=== PATIENT | female | born 1995 | race Caucasian/White ===

== ENCOUNTER 2016-09-17 21:52 | Emergency (ER) | payer OTHER ==
[~2016-09-17] VITALS: Ht 165.1 cm; Wt 61.2 kg
[2016-09-17 22:09] VITALS: BP 139/68
[2016-09-17 22:33] LABS: BILIRUBIN,URINE NEGATIVE (NEG); GLUCOSE,URINE NEGATIVE (NEG); NITRITE,URINE NEGATIVE (NEG); PH,URINE 6.5; PROTEIN,URINE NEGATIVE (NEG-TRACE); UROBILINOGEN,URINE 0.2 mg/dL (0.2 mg/dL)
[2016-09-17 22:41] LABS: BACTERIA,URINE MODERATE /HPF (0-FEW); RBC,URINE 0 /HPF (0-2); SQUAMOUS EPITHELIAL CELL,UR MANY /LPF
--- NOTE | 2016-09-18 00:29 | PHYS DOC ---
Past Medical History Past Medical History: No Pertinent History Past Surgical History: Tonsillectomy Additional Past Surgical Histo: TUBES/ADENOIDS Alcohol Use: Rarely Drug Use: None Adult General Chief Complaint Chief Complaint: ABDOMINAL PAIN IN HPI HPI Patient is a 20 year old female who presents with abdominal pain in . She states she is , at 4 weeks by dates, LMP 08/20. She states she had positive home test, now today having cramping lower abdominal pain. Denies fevers/chills, nausea/vomiting, diarrhea/constipation, dysuria/ hematuria, vaginal bleeding/discharge. Has not established care with OB yet. Review of Systems Review of Systems Constitutional: Denies fever or chills HENT: Denies nasal congestion or sore throat Respiratory: Denies cough or shortness of breath Cardiovascular: Denies chest pain or edema GI: Reports abdominal pain, denies nausea, vomiting, or diarrhea : Denies dysuria or hematuria Musculoskeletal: Denies back pain or joint pain Integument: Denies rash Neurologic: Denies headache Allergies Allergies Allergies Uncoded Allergies Type Severity Reaction Last Updated Verified STRAWBERRIES Allergy Unknown 09/17/16 Physical Exam Physical Exam Constitutional: Well developed, well nourished, no acute distress, non-toxic appearance. Smiling & laughing. HENT: Normocephalic, atraumatic, bilateral external ears normal, oropharynx moist, nose normal. Eyes: conjunctiva normal, no discharge. Neck: supple, no stridor. Cardiovascular: RRR, no murmurs, no edema. Lungs & Thorax: LCTAB, no wheezing, no respiratory distress. Abdomen: soft, diffuse lower abdominal pain no focal RLQ or RUQ tenderness, no masses or pulsatile masses, no rebound/guarding, nondistended. : normal appearing female external genitalia, normal appearing cervix with closed os, no blood or discharge, no CMT/adnexal tenderness. Skin: Warm, dry, no erythema, no rash. Back: No CVA tenderness. Extremities: No tenderness, no edema. Neurologic: Alert and oriented X 3 Current Patient Data Vital Signs Vital Signs Date Time Temp Pulse Resp B/P (MAP) Pulse Ox O2 Delivery O2 Flow Rate FiO2 09/17/16 22:09 98.2 97 18 139/68 (91) 98 Room Air 98.2 Lab Values Laboratory Tests Test 09/17/16 21:08 09/17/16 22:00 09/17/16 23:42 POC Urine HCG, Qualitative Hcg positive (Negative) Urine Collection Type Unknown Urine Color Yellow Urine Clarity Clear Urine pH 6.5 Urine Specific [place] >=1.030 Urine Protein Negative mg/dL (NEG-TRACE) Urine Glucose (UA) Negative mg/dL (NEG) Urine Ketones (Stick) Negative mg/dL (NEG) Urine Blood Negative (NEG) Urine Nitrite Negative (NEG) Urine Bilirubin Negative (NEG) Urine Urobilinogen Dipstick 0.2 mg/dL (0.2 mg/dL) Urine Leukocyte Esterase Small (NEG) Urine RBC 0 /HPF (0-2) Urine WBC 5-10 /HPF (0-4) Urine Squamous Epithelial Cells Many /LPF Urine Bacteria Moderate /HPF (0-FEW) Urine Mucus Marked /LPF Maternal Serum HCG Beta Subunit 29 mIU/mL (0-5) H Microbiology 09/17/16 Wet Prep - Final, Complete 09/17/16 Urine Culture - Preliminary, Resulted 09/17/16 Urine Culture Result 1 (ANAND) - Preliminary, Resulted EKG EKG [] Radiology/Procedures Radiology/Procedures PROCEDURE: OB < 14 WKS Obstetrical ultrasound less than 14 weeks HISTORY: Abdominal pain TECHNIQUE: Transabdominal and transvaginal transducers with grayscale, duplex Doppler sonography utilized. FINDINGS: Transabdominal imaging demonstrates uterus measuring 7.2 x 4.3 x 6.2 cm. Endometrium thickness 11 mm. Ovaries not visualized transabdominal. Transvaginal imaging demonstrates normal appearance of the cervix. Trace fluid within the cul-de-sac. Anteverted uterus measures 7.5 x 3.5 cm longitudinal. The uterus appears to be bicornuate with separation of the endometrium at the 2 uterine horns which join together at the lower uterine segment. Lower uterine endometrial thickness is 12 mm. Right uterine horn endometrial thickness is 9 mm, left uterine horn endometrial thickness is 8 mm. Right ovary measures 2.0 x 2.9 x 2.1 cm with minimal fluid surrounding it. Left ovary measures 1.0 x 3.0 x 1.1 cm. Subcentimeter bilateral ovarian follicles are present. Symmetric intact bilateral ovarian blood flow is present. There is thin slip of fluid within the right uterine horn endometrial cavity. IMPRESSION: No intrauterine evident. Small volume of dependent pelvic fluid. Bicornuate uterus. See discussion above. Electronically signed by: Deidra Goldberg MD (09/18/2016 12:31 AM) [facility] DICTATED and SIGNED BY: DEIDRA GOLDBERG MD DATE: 09/18/16 0028 [] Course & Med Decision Making Course & Med Decision Making Pertinent Labs and Imaging studies reviewed. (See chart for details) The patient presents with abdominal pain in . Well appearing & happy, normal vitals. Abdomen minimally tender. She initially refused labs but ultimately consented to BHCG. UA shows UTI. US shows no evidence of IUP, very early, could be early IUP, miscarriage, or ectopic . Discussed possibilities with patient, very important to follow up in about [address] Madden in OB clinic. BHCG is very low so may require several visits to confirm IUP but needs to establish care bc of pain today. Recommend rest, hydration, tylenol for pain, macrobid for UTI. Come back for high fever, severe pain, uncontrolled vomiting, any otherwise worsening condition, discharged home in stable condition. [] Dragon Disclaimer Dragon Disclaimer This electronic medical record was generated, in whole or in part, using a voice recognition dictation system. Departure Departure Impression: Primary Impression: Abdominal pain affecting Disposition: 01 HOME, SELF-CARE Condition: STABLE Referrals: NON,STAFF (PCP) JONES MADDEN Jr, MD Patient Instructions: Abdominal Pain During , [id number] Additional Instructions: You were seen in the emergency department today for abdominal pain in early . It was too early to see a baby on ultrasound. Your quantitative beta hCG level is 29 which is very low. This could be early , possibly miscarriage, possibly ectopic . It is very important to follow-up in the OB clinic in 2 days for repeat lab work. Please call for an appointment with Dr. Madden. In the meantime time, drink fluids, take Tylenol for pain. Come back for high fever, severe pain, uncontrolled vomiting, heavy bleeding requiring more than 1 pad per hour, any otherwise worsening condition. Scripts Nitrofurantoin Monohyd/M-Cryst (MACROBID 100 MG CAPSULE) 100 Mg Capsule 1 CAP PO BID, #14 CAP Prov: AMISH JEREZ MD 09/18/16 AMISH JEREZ MD Sep 18, 2016 00:29
--- NOTE | 2016-09-18 00:35 | RAD ---
Obstetrical ultrasound less than 14 weeks HISTORY: Abdominal pain TECHNIQUE: Transabdominal and transvaginal transducers with grayscale, duplex Doppler sonography utilized. FINDINGS: Transabdominal imaging demonstrates uterus measuring 7.2 x 4.3 x 6.2 cm. Endometrium thickness 11 mm. Ovaries not visualized transabdominal. Transvaginal imaging demonstrates normal appearance of the cervix. Trace fluid within the cul-de-sac. Anteverted uterus measures 7.5 x 3.5 cm longitudinal. The uterus appears to be bicornuate with separation of the endometrium at the 2 uterine horns which join together at the lower uterine segment. Lower uterine endometrial thickness is 12 mm. Right uterine horn endometrial thickness is 9 mm, left uterine horn endometrial thickness is 8 mm. Right ovary measures 2.0 x 2.9 x 2.1 cm with minimal fluid surrounding it. Left ovary measures 1.0 x 3.0 x 1.1 cm. Subcentimeter bilateral ovarian follicles are present. Symmetric intact bilateral ovarian blood flow is present. There is thin slip of fluid within the right uterine horn endometrial cavity. IMPRESSION: No intrauterine evident. Small volume of dependent pelvic fluid. Bicornuate uterus. See discussion above. Electronically signed by: Jaydon Goldberg MD (09/18/2016 12:31 AM) [facility]
[2016-09-18] MEDS ORDERED: NITR100C62 PO (00:57)
== END 2016-09-18 01:18 | disposition home or self-care (01) ==
LOC: ER 21:52
DX: O26.891 Other specified pregnancy related conditions, first trimester (principal); O23.41 Unspecified infection of urinary tract in pregnancy, first trimester; R10.84 Generalized abdominal pain; Z3A.01 Less than 8 weeks gestation of pregnancy; Z91.018 Allergy to other foods
CPT/HCPCS: 76801; 81001; 81025; 84702; 87086; 87186; 87491; 87591; 99285; Q0111

== ENCOUNTER 2018-03-17 12:47 | Emergency (ER) | payer MEDICAID, OTHER ==
[~2018-03-17] VITALS: Ht 160 cm; Wt 68.0 kg
[~2018-03-17 12:47] MED LIST: NITR100C62 PO
[2018-03-17 13:27] VITALS: BP 139/68
[2018-03-17] MEDS ORDERED: IBUPROFEN 600 MG TABLET. PO ONE (13:30)
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
--- NOTE | 2018-03-17 13:49 | RAD ---
Three-view left hand dated 03/17/2018. No comparison available. CLINICAL INDICATION: Pain after injury. Swelling. FINDINGS: 3 views left hand show soft tissue swelling at the level of the third PIP joint. There is a small radiolucent defect at the dorsal aspect of the base of the middle phalanx consistent with small fracture. This is seen on 2 views. No displacement. Osseous structures are otherwise unremarkable. IMPRESSION: Dorsal plate avulsion fracture base of middle phalanx of long finger. Electronically signed by: Jose Mckee MD (03/17/2018 1:45 PM) [facility]
[2018-03-17] MEDS ORDERED: HYDR-3164 PO (14:00)
== END 2018-03-17 14:14 | disposition home or self-care (01) ==
LOC: ER 12:47
DX: S62.653A Nondisplaced fracture of middle phalanx of left middle finger, initial encounter for closed fracture (principal); Z91.018 Allergy to other foods; W18.39XA Other fall on same level, initial encounter; Y93.89 Activity, other specified; Y92.89 Other specified places as the place of occurrence of the external cause; Y99.8 Other external cause status
CPT/HCPCS: 73130; 99283

== ENCOUNTER 2018-09-23 01:05 | Emergency (ER) | payer MEDICAID, OTHER ==
[~2018-09-23] VITALS: Ht 160 cm; Wt 68.0 kg
[~2018-09-23 01:05] MED LIST changes: +HYDR-3164 PO
[2018-09-23 01:40] VITALS: BP 108/62
--- NOTE | 2018-09-23 02:42 | PHYS DOC ---
Past Medical History Past Medical History: No Pertinent History Past Surgical History: Tonsillectomy Additional Past Surgical Histo: TUBES/ADENOIDS Alcohol Use: Rarely Drug Use: None Adult General Chief Complaint Chief Complaint: ANKLE PROBLEM HPI HPI Patient is a 23 year old f with ankle pain twisted right ankle no foot pain Allergies Allergies Allergies Uncoded Allergies Type Severity Reaction Last Updated Verified STRAWBERRIES Allergy Unknown 09/17/16 Physical Exam Physical Exam Constitutional: Well developed, well nourished, no acute distress, non-toxic appearance. [] HENT: Normocephalic, atraumatic, bilateral external ears normal, oropharynx moist, no oral exudates, nose normal. [] Eyes: PERRLA, EOMI, conjunctiva normal, no discharge. [] Back: No tenderness, no CVA tenderness. [] Extremitiesttp medial mall right side no base of fifth ttp Neurologic: Alert and oriented X 3, normal motor function, normal sensory function, no focal deficits noted. [] Psychologic: Affect normal, judgement normal, mood normal. [] Current Patient Data Vital Signs Vital Signs Date Time Temp Pulse Resp B/P (MAP) Pulse Ox O2 Delivery O2 Flow Rate FiO2 09/23/18 01:40 98.4 67 18 108/62 (77) 96 Room Air 98.4 EKG EKG [] Radiology/Procedures Radiology/Procedures [] Impressions: xray neg my read Course & Med Decision Making Course & Med Decision Making Pertinent Labs and Imaging studies reviewed. (See chart for details) joseph wrap rice therapy [] Dragon Disclaimer Dragon Disclaimer This electronic medical record was generated, in whole or in part, using a voice recognition dictation system. Departure Departure Impression: Primary Impression: Ankle sprain Disposition: HOME, SELF-CARE Condition: STABLE Patient Instructions: Ankle Sprain, [id number] BALTAZAR CORREA MD Sep 23, 2018 02:42
--- NOTE | 2018-09-23 08:12 | RAD ---
ANKLE RIGHT 3V History: Right ankle pain. Trauma. Comparison: None. Findings: Normal alignment. Symmetric ankle mortise. No acute fracture. Soft tissues unremarkable. Impression: 1. No acute osseous abnormality. Electronically signed by: Devan Bullock DO (09/23/2018 8:09 AM) [id number]
== END 2018-09-23 02:40 | disposition home or self-care (01) ==
LOC: ER 01:05
DX: S93.491A Sprain of other ligament of right ankle, initial encounter (principal); Z90.89 Acquired absence of other organs; Z91.018 Allergy to other foods; X50.1XXA Overexertion from prolonged static or awkward postures, initial encounter; Y93.89 Activity, other specified; Y92.89 Other specified places as the place of occurrence of the external cause; Y99.8 Other external cause status
CPT/HCPCS: 73610; 99284